=== PATIENT | female | born 2000 | race Caucasian/White ===

== ENCOUNTER 2024-06-22 17:41 | Outpatient (CLI) | payer BC ==
[~2024-06-22] VITALS: Ht 165.1 cm; Wt 114.5 kg
--- NOTE | 2024-06-22 17:00 | NUR ---
PT AMBULATORY TO LR5. PT WAS SENT OVER FROM OFFICE FOR NST, SERIAL BLOOD PRESSURES, CBC, CMP AND UA PER . PT VOIDS AND CHANGES INTO CLEAN GOWN. PLACED ON EFM AND TOCO. LABS OBTAINED, ADMISSION QUESTIONS COMPLETED. THE PATIENT DENIES CONTRACTIONS AND HAS BEEN FEELING THE BABY MOVE. NO LOF OR VAGINAL.
[~2024-06-22 17:41] MED LIST: LR 1,000 ML IV PRN; PNV-SELECT1 TAB PO
[2024-06-22 17:45] VITALS: BP 149/84; PULSE 98; TEMP 99.2
[2024-06-22 17:46] LABS: COLLECTION METHOD CLEAN CATCH
[2024-06-22 17:50] LABS: BASO % 0.1 % (0.0-2.0); EOS # 0.2 K/mm3 (0.0-0.7); EOS % 1.1 % (0.0-4.0); GRAN # 10.3 K/mm3 (1.4-6.5); GRAN % 72.9 % (42.2-75.2); HEMOGLOBIN 12.8 g/dl (12.5-16.0); LYMPH # 2.6 K/mm3 (1.2-3.4); MEAN CELL VOLUME 81 fl (80.0-100.0); MEAN CORPUSCULAR HEMOGLOBIN 28 pg (27-31); MEAN CORPUSCULAR HGB CONC 35 g/dl (33.0-37.0); MEAN PLATELET VOLUME 9.6 fl (7.4-10.4); MONO % 7.3 % (1.7-9.3); PLATELET COUNT 277 K/mm3 (130-400); RED BLOOD COUNT 4.54 M/mm3 (4.10-5.30); REDCELL DISTRIBUTION WIDTH-CV 13.6 % (11.5-14.5)
[2024-06-22 17:52] LABS: HEMATOCRIT 36.7 % (37.0-47.0)
[2024-06-22 17:58] LABS: PH 6.5 (5.0-8.5); URINE APPEARANCE CLOUDY (CLEAR/HAZY); URINE BLOOD NEGATIVE (NEGATIVE); URINE COLOR YELLOW (YELLOW); URINE GLUCOSE NEGATIVE (NEGATIVE); URINE KETONE NEGATIVE (NEGATIVE); URINE NITRATE NEGATIVE (NEGATIVE); URINE PROTEIN(semi-quant) NEGATIVE (NEGATIVE); URINE UROBILINOGEN 0.2 E.U/dL (0.2-1.0)
[2024-06-22 18:10] LABS: ALBUMIN 2.8 g/dL (3.5-5.0); BILIRUBIN,TOTAL 0.3 mg/dL (0.2-1.2); CALCIUM 9.6 mg/dL (8.4-10.2); CREATININE, serum 0.67 mg/dL (0.57-1.11); POTASSIUM 3.7 mEq/L (3.5-4.5); TOTAL PROTEIN 7.3 g/dl (6.2-8.1)
[2024-06-22 18:15] VITALS: BP 129/68; PULSE 95
--- NOTE | 2024-06-22 18:40 | NUR ---
PT'S BLOOD PRESSURES ARE ELEVATED BUT NOT IN SEVERE RANGE, HIGHEST 149/84 AND LOWEST 129/68. THE PATIENT DENIES HEADACHES OR VISUAL DISTURBANCES. LABS RETURNED WNL, PER DR. RAJPUT THE PATIENT CAN GO HOME, BUT NEEDS TO BE SEEN IN THE OFFICE ON THURSDAY FOR A BLOOD PRESSURE CHECK. DISCHARGE EDUCATION COMPLETED. THE PATIENT VERBALIZED UNDERSTANDING. PT AMBULATES OFF UNIT WITH SPOUSE AT 1840.
== END 2024-06-22 18:40 | disposition home or self-care (01) ==
LOC: LDR 17:41 → LDRO 17:41 → LDR 17:42 → LDRO 18:40
PROVIDERS: Obstetrics & Gynecology
DX: O13.3 Gestational [pregnancy-induced] hypertension without significant proteinuria, third trimester (principal); Z3A.39 39 weeks gestation of pregnancy
CPT/HCPCS: OP

== ENCOUNTER 2024-07-03 00:30 | Inpatient (IN) | payer BC ==
[2024-07-03] VITALS (36 sets, daily range): BP systolic 107–159; BP diastolic 56–105; PULSE 93–408; TEMP 98.2–99.1
[~2024-07-03] VITALS: Wt 115.0 kg
[~2024-07-03 00:30] MED LIST changes: +ANTIBIOTIC; -LR 1,000 ML IV PRN
--- NOTE | 2024-07-03 00:30 | NUR ---
0030- PT PRESENTS TO LDR COMPLAINING OF CONTRACTIONS, AMBULATORY TO ROOM LR6, CHANGED INTO GOWN. 0037- EFM X2 APPLIED. PT DENIES LEAKING FLUID, STATES SHE HAS HAD SOME LIGHT SPOTTING, IS FEELING BABY MOVE. PT STATES SHE HAS BEEN MIRIAM FOR 24 HOURS BUT BECAME MORE UNCOMFORTABLE WITH HER CONTRACTIONS AROUND 2300. PLAN OF CARE FOR LABOR CHECK DISCUSSED, QUESTIONS ANSWERED. CONSENT FOR SVE OBTAINED. 0045- SVE BY THIS NURSE , NO POOLING OF FLUID OR BLOOD NOTED WITH EXAM. PLAN FOR WATCHING PT AND RECHECKING CERVIX DISCUSSED AND PT IS AGREEABLE WITH THIS PLAN OR CARE. 0055- NURSING ADMISSION HISTORY AND ASSESSMENT COMPLETE. 0109- PT OFF MONITOR TO MOVE AROUND IN ROOM FOR PAIN RELIEF. 0152- PT BACK TO BED AND ON MONITORS. PT STATES SHE IS MORE UNCOMFORTABLE WITH HER CONTRACTIONS. SHE IS ABLE TO BREATHE THROUGH THEM STILL. SVE BY THIS NURSE 4. INFORMED PT NURSE WOULD CALL AND UPDATE HER FOR ORDERS. PT IS AGREEABLE WITH THIS PLAN. 0157- DR HOWARD CALLED AND UPDATED CHARTED. ORDERS RECEIVED FOR ADMISSION AND MAHNAZ FOR GBS POSITIVE.
[2024-07-03] MEDS ORDERED: LR 1,000 ML IV PRN ×2 (01:00→02:15)
[2024-07-03] MEDS ORDERED: Penicillin G Potassium 5,000,000 UNITS in NS 100 ML IV ONE (02:15)
[2024-07-03] MEDS ORDERED: LR & Oxytocin 500 ML IV SCH (02:15)
[2024-07-03] MEDS ORDERED: LR 1,000 ML IV SCH (02:15)
--- NOTE | 2024-07-03 03:15 | NUR ---
Note difficulty tracing contractions despite repositioning toco while patient sitting upright on birthing ball. When patient breathing through contractions, abdomen soft.
--- NOTE | 2024-07-03 03:30 | NUR ---
Note FHR baseline trending upward, patient afebrile, and remains intact. Note patient has had 500 mL LR bolus in, breathing under control with pain. Maternal pulse tachycardic in 100s. Will continue to monitor.
[2024-07-03 03:42] LABS: BASO # 0.1 K/mm3 (0.0-0.2); BASO % 0.2 % (0.0-2.0); EOS # 0.1 K/mm3 (0.0-0.7); EOS % 0.2 % (0.0-4.0); GRAN % 81.7 % (42.2-75.2); LYMPH # 2.2 K/mm3 (1.2-3.4); LYMPH % 10.6 % (20.0-51.0); MEAN CELL VOLUME 83 fl (80.0-100.0); MEAN CORPUSCULAR HEMOGLOBIN 28 pg (27-31); MEAN CORPUSCULAR HGB CONC 34 g/dl (33.0-37.0); MEAN PLATELET VOLUME 10.6 fl (7.4-10.4); MONO # 1.4 K/mm3 (0.1-0.6); MONO % 6.8 % (1.7-9.3); PLATELET COUNT 286 K/mm3 (130-400); RED BLOOD COUNT 4.31 M/mm3 (4.10-5.30); REDCELL DISTRIBUTION WIDTH-CV 14.2 % (11.5-14.5)
[2024-07-03 03:47] LABS: HEMATOCRIT 35.6 % (37.0-47.0)
[2024-07-03 04:01] LABS: ALBUMIN 2.9 g/dL (3.5-5.0); BILIRUBIN,TOTAL 0.4 mg/dL (0.2-1.2); CALCIUM 9.4 mg/dL (8.4-10.2); CREATININE, serum 0.69 mg/dL (0.57-1.11); POTASSIUM 3.6 mEq/L (3.5-4.5); TOTAL PROTEIN 7.4 g/dl (6.2-8.1)
--- NOTE | 2024-07-03 04:15 | NUR ---
Note heart rate baseline appears to be wandering.
--- NOTE | 2024-07-03 04:16 | NUR ---
Patient denies painful urination or flank pain. States the position of peeing is uncomfortable. Discussed obtaining clean catch UA next time she voids. Verbalizes understanding.
[2024-07-03] MEDS ORDERED: fentaNYL 50 MCG/ML 2 ML VIAL IV ONE (04:30)
--- NOTE | 2024-07-03 04:45 | NUR ---
Note continued difficulty tracing contraction pattern despite trouble shooting, moving toco around. At this time, patient inquires as to when her water will break. This board writer states cannot palpate a bag of [place] with exam. Patient, at this time, tells this board writer she came in last night around 0400 thinking her water had broke @ 0230 on 07/02. States the swab was negative and she was discharged to home. Nursery nurse notified of this, as heart rate trending towards tachycardia, and temp now 99.0 orally.
[2024-07-03] MEDS ORDERED: diphenhydrAMINE 50 MG CAP PO PRN (05:00)
[2024-07-03] MEDS ORDERED: Acetaminophen 500 MG TAB PO PRN ×2 (05:00→11:15)
--- NOTE | 2024-07-03 05:25 | NUR ---
[place] switched out in attempt to better trace contractions. Note still unable to palpate contractions well when patient breathing through contractions.
[2024-07-03 05:44] LABS: COLLECTION METHOD CLEAN CATCH
[2024-07-03 05:52] LABS: PH 5.5 (5.0-8.5); URINE APPEARANCE CLOUDY (CLEAR/HAZY); URINE BLOOD 2+ (NEGATIVE); URINE COLOR YELLOW (YELLOW); URINE GLUCOSE NEGATIVE (NEGATIVE); URINE KETONE 2+ (NEGATIVE); URINE NITRATE NEGATIVE (NEGATIVE); URINE PROTEIN(semi-quant) 1+ (NEGATIVE)
--- NOTE | 2024-07-03 05:56 | NUR ---
Note broken tracing while patient upright on birthing ball. Attempts to reposition US made.
[2024-07-03] MEDS ORDERED: Penicillin G Potassium 2,500,000 UNITS in NS 100 ML IV SCH (06:00)
[2024-07-03 06:25] LABS: AMORPHOUS CRYSTAL PRESENT (NOT PRESENT); URINE BACTERIA MODERATE /hpf (NONE SEEN)
--- NOTE | 2024-07-03 09:00 | NUR ---
PT ON BIRTHING BALL, HEART MONITOR TRACING MATERNAL HEART RATE. THIS RN AT BEDSIDE ADJUSTING HEART MONITOR
--- NOTE | 2024-07-03 09:30 | NUR ---
DR. ADAMS AT BEDSIDE, SVE PER DR. ADAMS /+1 WITH AN ANTERIOR CERVICAL LIP LEFT. DISCUSSES WITH PT USE OF OXYTOCIN TO HELP MAKE CONTRACTIONS STRONGER AND MORE FREQUENT. PT AGREES. DR. ADAMS ORDERS TO START PITOCIN PER PROTOCOL
--- NOTE | 2024-07-03 10:56 | NUR ---
1020: PT STATES THAT SHE FEELS THE URGE TO PUSH, PT DENIES A CERVICAL EXAM TO SEE IF ANTERIOR CERVICAL LIP IS GONE. DR. ADAMS ON UNIT, STATES THAT PT CAN START PUSHING. 1025: PUSHING STARTED WITH PT IN HANDS AND KNEES POSITION. 1033: PT TURNED ONTO BACK AND UP IN FOOT PLATES TO PUSH 1035: DR. ADAMS AT BEDSIDE 1045: IS ARCHITECT AND NURSERY RN AT BEDSIDE 1056: OF VIABLE MALE INFANT. NUCHAL X1, DR. ADAMS UNABLE TO REDUCE, CLAMPED X2 AND CUT BY DR. ADAMS. LIGHT MECONIUM NOTED AT DELIVERY. PLACED ON MOTHER'S ABDOMEN, CORD CLAMPED X2 AND CUT BY FOB. NURSERY RN PROVIDES CARE FOR INFANT. PITOCIN STOPPED 1059: OF INTACT PLACENTA. PITOCIN BOLUS STARTED AT 333ML/HR. DR. ADAMS REPAIRS 1ST DEGREE LACERATION. PT CLEANED UP, BED PUT BACK TOGETHER, PT TAKEN OUT OF FOOT PLATES. PT DOING SKIN TO SKIN WITH , BOTH IN STABLE CONDITION. WILL CONTINUE TO MONITOR
[2024-07-03] MEDS ORDERED: Loratadine 10 MG TAB PO PRN (11:15)
[2024-07-03] MEDS ORDERED: Magnes Hydrox (MOM) 80 MG/ML 30 ML CUP PO PRN (11:15)
[2024-07-03] MEDS ORDERED: Measles/Mumps/Rubella Virus Vaccine Live w Diluent 0.5 ML VIAL SQ SCH (11:15)
[2024-07-03] MEDS ORDERED: Witch Hazel 50% Pads Bulk TUB TP PRN (11:15)
[2024-07-03] MEDS ORDERED: oxyCODONE 5 MG TAB PO PRN (11:15)
[2024-07-03] MEDS ORDERED: Naloxone 0.4 MG/ML VIAL IV PRN (11:15)
[2024-07-03] MEDS ORDERED: Ibuprofen 800 MG TAB PO SCH (11:15)
[2024-07-03] MEDS ORDERED: Mag/Al Hydrox/Simeth Susp 30 ML CUP PO PRN (11:15)
[2024-07-03] MEDS ORDERED: Phenylephrine/Mineral Oil/Petrolatum 57 GM TUBE RC PRN (11:15)
[2024-07-03] MEDS ORDERED: Tdap Vaccine 0.5 ML SYRINGE IM SCH (11:15)
[2024-07-03] MEDS ORDERED: Sennosides/Docusate 8.6-50 MG TAB PO SCH (17:00)
[2024-07-03] MEDS ORDERED: traZODone 50 MG TAB PO PRN (21:00)
[2024-07-04 07:45] VITALS: BP 117/59; PULSE 106; TEMP 97.9
--- NOTE | 2024-07-04 11:03 | NUR ---
Initial visit; Patient indisposed. Her thanked Eeo Officer for offering congratulations and God's blessings to their family for the of their son. Eeo Officer thanked family for choosing [facility].
[2024-07-04] MEDS ORDERED: IBU800 M1 PO (12:46)
--- NOTE | 2024-07-04 14:40 | NUR ---
CAR SEAT STRAPS CHECKED, PT AMBULATORY AT DISCHARGE IN STABLE CONDITION. INFANT IN STABLE CONDITION.
== END 2024-07-04 14:40 | disposition home or self-care (01) | DRG 807 ==
LOC: LDR 00:30 → LDRO 00:30 → LDR 01:57 → OB 01:57
PROVIDERS: Obstetrics & Gynecology; ADMIT Obstetrics & Gynecology
PROC: 10E0XZZ Delivery of Products of Conception, External Approach (ICD-10-PCS; principal; 2024-07-03)
PROC: 0HQ9XZZ Repair Perineum Skin, External Approach (ICD-10-PCS; 2024-07-03)
DX: O48.0 Post-term pregnancy (principal); Z37.0 Single live birth; O13.4 Gestational [pregnancy-induced] hypertension without significant proteinuria, complicating childbirth; O99.824 Streptococcus B carrier state complicating childbirth; O69.81X0 Labor and delivery complicated by cord around neck, without compression, not applicable or unspecified; Z3A.41 41 weeks gestation of pregnancy; O99.214 Obesity complicating childbirth; E28.2 Polycystic ovarian syndrome; O62.0 Primary inadequate contractions; O70.0 First degree perineal laceration during delivery; O14.04 Mild to moderate pre-eclampsia, complicating childbirth; O75.89 Other specified complications of labor and delivery
CPT/HCPCS: J2540; J2590; J7120